=== PATIENT | female | born 2000 | race Caucasian/White ===

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

== ENCOUNTER 2020-12-24 12:20 | Emergency (ER) | payer MEDICAID, OTHER ==
--- NOTE | 2020-12-24 13:11 | ED Physician Documentation ---
History of Present Illness - Stated complaint Stated Complaint: BLOOD IN STOOL - Chief complaint Chief Complaint: Abd Pain - Additonal information Additional information: 20-year-old female presents to the emergency department with 2 concerns. Her first concern of priority is that she noticed bright red bloody stools this morning. She denies that she had painful bowel movements. She denies that it was blood-streaked stool. She is concerned because both her mom and sisters have a history of Crohn's/colitis and she is concerned that this may be the on set of this condition. She has no fevers, vomiting. Denies urinary symptoms. No pertinent past surgical history. She denies any history of bloody stools. Patient denies aspirin or NSAID use. She does drink occasionally and has been drinking more heavily than normal recently. preceding this a.m. Her second concern is worsening depression. She reports that 2 nights ago she cut her left arm extensively. She has suicidal thoughts but denies intent of self-harm at this time. After cutting herself 2 nights ago she did reach out to her therapist And stated that she felt a little better after cutting but she expresses that she feels generally fatigued disinterested in life and disassociated with her body. She has been using cannabis oil as well as occasionally smoking to help control her symptoms. She has never been medicated for her depression or anxiety. She does have an appointment with her talk therapist this upcoming Saturday but is interested in the possibility of starting oral medications. She does endorse a history of alcohol use but has been trying not to drink. She reports that when she cut herself 2 nights ago she had been drinking heavily. Pt does not have an established PCP Review of Systems Constitutional: denies: Fever, Chills Eyes: reports: Reviewed and negative Ears: reports: Reviewed and negative Nose: reports: Reviewed and negative Throat: reports: Reviewed and negative Cardiac: reports: Reviewed and negative Respiratory: reports: Reviewed and negative GI: reports: Abdominal Pain, Nausea, Bloody / black stool. denies: Vomiting, Constipation, Diarrhea : denies: Dysuria, Frequency, Hesitancy Skin: reports: Lesions (Multiple shallow cutting lesions in various stages of healing on the left forearm chest and left neck.). denies: Rash Musculoskeletal: reports: Reviewed and negative Neurologic: reports: Reviewed and negative Psychiatric: reports: Depressed, Anxiety. denies: Suicidal (Suicidal thoughts but no active plan.), Homicidal, Hallucinations, Insomnia Endocrine: reports: Reviewed and negative PD PAST MEDICAL HISTORY - Past Surgical History Past Surgical History: No - Present Medications Home Medications: Ambulatory Orders Medication Instructions Recorded Confirmed Pantoprazole [Protonix] 0 mg PO AC #30 12/24/20 - Allergies Allergies/Adverse Reactions: Allergies Allergy/AdvReac Type Severity Reaction Status Date / Time No Known Drug Allergies Allergy Verified 12/24/20 12:30 - Social History Does the pt smoke?: No Smoking Status: Never smoker Does the pt drink ETOH?: No Does the pt have substance abuse?: No PD ED PE EXPANDED - General General: Alert, No acute distress, Well developed/nourished - HEENT HEENT: Atraumatic, PERRL - Neck Neck: Supple w/out meningeal sx, Other (multiple shallow cutting lesion left neck). No: Adenopathy - Cardiac Cardiac: Regular Rate, Regular Rhythm, Radial strong equal, Pedal strong equal, Cap refill < 2 sec - Respiratory Respiratory: Clear to ausultation [place]. No: Distress, Labored - Abdomen Abdomen: Normal Bowel sounds, Tender to palpation (LUQ without guarding or rebound) - Rectal Rectal: Normal Tone, Solutions Executive Security present, Other (Digital rectal exam revealed a small amount of garrison hematochezia) - Derm Derm: Normal color, Warm and dry, Other (Multiple shallow cutting lesions left forearm neck and chest in various stages of healing. No surrounding erythema drainage or signs of infection.). No: Pale - Neuro Neuro: Alert and Oriented X 3, CNII-XII intact - GCS Eye Opening: Spontaneous Motor: Obeys Commands Verbal: Oriented Total: 15 - Psych Psych: Anxious. No: Suicidal, Homicidal Results - Vitals Vitals: Vital Signs - 24 hr 12/24/20 12/24/20 12/24/20 12:25 13:18 15:40 Temperature 36.5 C 37.0 C 36.8 C Heart Rate 63 48 L 55 L Respiratory 16 18 13 Rate Blood Pressure 123/82 H 114/80 114/74 O2 Saturation 100 99 100 12/24/20 12/24/20 17:48 19:30 Temperature 36.8 C 37.2 C Heart Rate 71 57 L Respiratory 12 16 Rate Blood Pressure 106/65 126/85 H O2 Saturation 100 100 Oxygen O2 Source Room air - Labs Labs: Laboratory Tests 12/24/20 12/24/20 12/24/20 13:00 13:00 13:13 WBC 8.9 RBC 4.35 Hgb 14.0 Hct 42.1 MCV 96.8 MCH 32.2 H MCHC 33.3 RDW 11.4 L Plt Count 252 MPV 9.6 Neut # (Auto) 6.6 Lymph # (Auto) 1.8 [place] # (Auto) 0.5 Eos # (Auto) 0.1 Baso # (Auto) 0.0 Absolute Nucleated RBC 0.00 Nucleated RBC % 0.0 Sodium Potassium Chloride Carbon Dioxide Anion Gap BUN Creatinine Estimated GFR (MDRD) Glucose Calcium Magnesium Total Bilirubin AST ALT Alkaline Phosphatase Total Protein Albumin Globulin Albumin/Globulin Ratio Lipase TSH Urine Color YELLOW Urine Clarity CLEAR Urine pH 7.0 Ur Specific [place] 1.010 Urine Protein NEGATIVE Urine Glucose (UA) NEGATIVE Urine Ketones NEGATIVE Urine Occult Blood NEGATIVE Urine Nitrite NEGATIVE Urine Bilirubin NEGATIVE Urine Urobilinogen 0.2 (NORMAL) Ur Leukocyte Esterase NEGATIVE Ur Microscopic Review NOT INDICATED Urine Culture Comments NOT INDICATED Urine HCG, Qual NEGATIVE Nasal Adenovirus (PCR) Nasal B. parapertussis DNA (PCR) Nasal Coronavir 229E PCR Nasal Coronavir HKU1 PCR Nasal Coronavir NL63 PCR Nasal Coronavir OC43 PCR Nasal Enterovir/Rhinovir PCR Nasal Influenza B PCR Nasal Influenza A PCR Nasal Parainfluen 1 PCR Nasal Parainfluen 2 PCR Nasal Parainfluen 3 PCR Nasal Parainfluen 4 PCR Nasal RSV (PCR) Nasal B.pertussis DNA PCR Nasal C.pneumoniae (PCR) Nael Human Metapneumo PCR Nasal M.pneumoniae (PCR) Nasal SARS-CoV-2 (PCR) Salicylates Urine Opiates Screen NEGATIVE Ur Oxycodone Screen NEGATIVE Urine Methadone Screen NEGATIVE Ur Propoxyphene Screen NEGATIVE Acetaminophen Ur Barbiturates Screen NEGATIVE Ur Tricyclics Screen NEGATIVE Ur Phencyclidine Scrn NEGATIVE Ur Amphetamine Screen NEGATIVE U Methamphetamines Scrn NEGATIVE U Benzodiazepines Scrn NEGATIVE Urine Cocaine Screen NEGATIVE U Cannabinoids Screen NEGATIVE Ethyl Alcohol 12/24/20 12/24/20 12/24/20 13:13 13:13 13:13 WBC RBC Hgb Hct MCV MCH MCHC RDW Plt Count MPV Neut # (Auto) Lymph # (Auto) [place] # (Auto) Eos # (Auto) Baso # (Auto) Absolute Nucleated RBC Nucleated RBC % Sodium 139 Potassium 3.7 Chloride 99 L Carbon Dioxide 27 Anion Gap 13.0 BUN 18 Creatinine 1.0 Estimated GFR (MDRD) 69 L Glucose 92 Calcium 9.8 Magnesium 2.1 Total Bilirubin 0.9 AST 20 ALT 16 Alkaline Phosphatase 45 Total Protein 8.2 Albumin 4.9 Globulin 3.3 Albumin/Globulin Ratio 1.5 Lipase 31 TSH 0.71 Urine Color Urine Clarity Urine pH Ur Specific [place] Urine Protein Urine Glucose (UA) Urine Ketones Urine Occult Blood Urine Nitrite Urine Bilirubin Urine Urobilinogen Ur Leukocyte Esterase Ur Microscopic Review Urine Culture Comments Urine HCG, Qual Nasal Adenovirus (PCR) Nasal B. parapertussis DNA (PCR) Nasal Coronavir 229E PCR Nasal Coronavir HKU1 PCR Nasal Coronavir NL63 PCR Nasal Coronavir OC43 PCR Nasal Enterovir/Rhinovir PCR Nasal Influenza B PCR Nasal Influenza A PCR Nasal Parainfluen 1 PCR Nasal Parainfluen 2 PCR Nasal Parainfluen 3 PCR Nasal Parainfluen 4 PCR Nasal RSV (PCR) Nasal B.pertussis DNA PCR Nasal C.pneumoniae (PCR) Nael Human Metapneumo PCR Nasal M.pneumoniae (PCR) Nasal SARS-CoV-2 (PCR) Salicylates < 6.0 Urine Opiates Screen Ur Oxycodone Screen Urine Methadone Screen Ur Propoxyphene Screen Acetaminophen < 10 L Ur Barbiturates Screen Ur Tricyclics Screen Ur Phencyclidine Scrn Ur Amphetamine Screen U Methamphetamines Scrn U Benzodiazepines Scrn Urine Cocaine Screen U Cannabinoids Screen Ethyl Alcohol < 5.0 12/24/20 18:30 WBC RBC Hgb Hct MCV MCH MCHC RDW Plt Count MPV Neut # (Auto) Lymph # (Auto) [place] # (Auto) Eos # (Auto) Baso # (Auto) Absolute Nucleated RBC Nucleated RBC % Sodium Potassium Chloride Carbon Dioxide Anion Gap BUN Creatinine Estimated GFR (MDRD) Glucose Calcium Magnesium Total Bilirubin AST ALT Alkaline Phosphatase Total Protein Albumin Globulin Albumin/Globulin Ratio Lipase TSH Urine Color Urine Clarity Urine pH Ur Specific [place] Urine Protein Urine Glucose (UA) Urine Ketones Urine Occult Blood Urine Nitrite Urine Bilirubin Urine Urobilinogen Ur Leukocyte Esterase Ur Microscopic Review Urine Culture Comments Urine HCG, Qual Nasal Adenovirus (PCR) NOT DETECTED Nasal B. parapertussis DNA (PCR) NOT DETECTED Nasal Coronavir 229E PCR NOT DETECTED Nasal Coronavir HKU1 PCR NOT DETECTED Nasal Coronavir NL63 PCR NOT DETECTED Nasal Coronavir OC43 PCR NOT DETECTED Nasal Enterovir/Rhinovir PCR NOT DETECTED Nasal Influenza B PCR NOT DETECTED Nasal Influenza A PCR NOT DETECTED Nasal Parainfluen 1 PCR NOT DETECTED Nasal Parainfluen 2 PCR NOT DETECTED Nasal Parainfluen 3 PCR NOT DETECTED Nasal Parainfluen 4 PCR NOT DETECTED Nasal RSV (PCR) NOT DETECTED Nasal B.pertussis DNA PCR NOT DETECTED Nasal C.pneumoniae (PCR) NOT DETECTED Nael Human Metapneumo PCR NOT DETECTED Nasal M.pneumoniae (PCR) NOT DETECTED Nasal SARS-CoV-2 (PCR) NOT DETECTED Salicylates Urine Opiates Screen Ur Oxycodone Screen Urine Methadone Screen Ur Propoxyphene Screen Acetaminophen Ur Barbiturates Screen Ur Tricyclics Screen Ur Phencyclidine Scrn Ur Amphetamine Screen U Methamphetamines Scrn U Benzodiazepines Scrn Urine Cocaine Screen U Cannabinoids Screen Ethyl Alcohol - Rads (name of study) CT abd Radiology: Final report received (Nondilated fluid-filled loops of the small bowel are seen throughout the abdomen which are nonspecific but may indicate a mild enteritis. No signs of bowel obstruction. Normal appendix.) PD MEDICAL DECISION MAKING - ED course Complexity details: reviewed results, re-evaluated patient, considered differential, d/w patient ED course: 20-year-old female presents emergency department for 2 concerns. The first is that she developed bright red bloody stools this a.m. She does have a family history of Crohn's or colitis and is concerned she may be developing that. Here in the emergency department her vital signs and labs are essentially. No leukocytosis and a very healthy hemoglobin. 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 I did do a digital rectal exam on this patient and there was a small amount of hematochezia on the gloved finger. I discussed the CT findings with the patient and discussed that moving forward she will need to be seen by a assistant secretary to undergo colonoscopy as that is the definitive testing for Crohn's colitis. I will recommend that she avoid any NSAID use and we will start her on twice daily Protonix. We did discuss that if she is having worsening rectal bleeding, feels faint or dizzy, has a resting heart rate greater than 115, has any fainting episode she is to return immediately to the emergency department. The second concern for this young lady is her depression and anxiety. She has been self cutting recently but is fairly adamant with this provider that she does not want to harm herself or others. She has found some symptom relief by using talk therapy and has stopped smoking cannabis and drinking. However I suspect that she will do well with oral medication. Therefore I requested telepsych consultation 0: I have spoken with telepsych psychiatrist Dr. Nelson who has assessed the patient. Unfortunately she gave a much more worrisome history for suicidal behaviors. She expressed to him that she has attempted suicide in the past by taking too many sleeping pills. She also has thoughts of jumping off a bridge or in front of traffic. She expressed to the psychiatrist that these thoughts are becoming pervasive and overwhelming. At this time he feels that the patient should be voluntarily placed in psychiatric facility for mood stabilization. He expresses to this provider that if she does not wish to go in voluntarily he would request DCR evaluation for involuntary status. I spent some time at the bedside with the patient. We discussed that what she reported to me and the psychiatrist were quite different and she agreed that they were. She does feel that she minimized her initial thoughts to me. We discussed that the big concern is that she would be at risk to harm herself leaving the hospital. At this time she agrees to be placed in a psychiatric facility voluntarily. I discussed with her that if her decision would change I would request DCR involvement though there is no guarantee that DCR would make her an involuntary placement. 2100: Patient has been accepted at [facility] for further psychiatric evaluation and treatment. Appropriate COBRA paperwork as well as authorization of secure ambulance transportation to and from [facility] services form completed Departure - Departure Disposition: 65 Psych Hosp/Unit DC/Xfer Clinical Impression: Bloody stools Depression Qualifiers: Depression Type: major depressive disorder Major depression recurrence: unspecified whether recurrent Active/Remission status: currently active Major depression episode severity: severe Psychotic features: without psychotic features Qualified Code(s): F32.2 - Major depressive disorder, single episode, severe without psychotic features Condition: Stable Record reviewed to determine appropriate education?: Yes Prescriptions: Pantoprazole [Protonix] 0 mg PO AC #30 Comments: I wish you luck in your journey. Please be patient withotuself. the road to [facility] takes time, but you can get there. As we discussed the CT scan of your belly did suggest an enteritis or mild inflammation of the small bowel. Is not clear at this time if this is simply an early viral illness or if this is the first time presentation for possible Crohn's or colitis. Once out of hospitalization for depression it is important that you schedule follow-up appointment with a primary care provider. You need referral to a assistant secretary in order to undergo endoscopy or colonoscopy. I would like you to start taking Protonix once daily. Please avoid any NSAID medication use such as ibuprofen. Also avoid all alcohol use. If at any point you develop a racing heart at rest, have suddenly severe belly p ain, have severe or worsening rectal bleeding or feel that your symptoms are not improving please return immediately to the emergency department
[2020-12-24 13:13] LABS: MUDS CUTOFF CONCENTRATIONS CUTOFF CONC BELOW:
[2020-12-24 13:16] LABS: BILIRUBIN,URINE NEGATIVE (NEGATIVE); GLUCOSE, URINE (UA) NEGATIVE (NEGATIVE); KETONES,URINE (UA) NEGATIVE (NEGATIVE); LEUKOCYTE ESTERASE, URINE NEGATIVE (NEGATIVE); NITRITE,URINE NEGATIVE (NEGATIVE); OCCULT BLOOD,URINE NEGATIVE (NEGATIVE); PROTEIN,URINE NEGATIVE (NEGATIVE); UROBILINOGEN,URINE 0.2 (NORMAL) E.U./dL (NORMAL)
[2020-12-24 13:18] LABS: CLARITY,URINE CLEAR (CLEAR); HCG UR QUAL NEGATIVE
[2020-12-24 13:22] LABS: BASOPHILS % (AUTO) 0.3 %; EOSINOPHILS # (AUTO) 0.1 10^3/uL (0.0-0.7); EOSINOPHILS % (AUTO) 0.9 %; LYMPHOCYTES # (AUTO) 1.8 10^3/uL (1.5-3.5); LYMPHOCYTES % (AUTO) 19.8 %; MEAN CORPUSCULAR HEMOGLOBIN 32.2 pg (27.0-31.0); MEAN CORPUSCULAR HGB CONC 33.3 g/dL (32.0-36.0); MEAN CORPUSCULAR VOLUME 96.8 fL (81.0-99.0); MEAN PLATELET VOLUME 9.6 fL (7.9-10.8); MONOCYTES # (AUTO) 0.5 10^3/uL (0.0-1.0); MONOCYTES % (AUTO) 5.1 %; NEUTROPHILS # (AUTO) 6.6 10^3/uL (1.5-6.6); NEUTROPHILS % (AUTO) 73.8 %; PLT - PLATELET COUNT 252 10^3/uL (130-450); RED BLOOD COUNT 4.35 10^6/uL (4.20-5.40); RED CELL DISTRIBUTION WIDTH 11.4 % (12.0-15.0); WHITE BLOOD COUNT 8.9 x10^3/uL (4.8-10.8)
[2020-12-24 13:32] LABS: AMPHETAMINE SCREEN,URINE NEGATIVE (NEGATIVE); BENZODIAZEPINES SCREEN, URINE NEGATIVE (NEGATIVE); COCAINE SCREEN URINE NEGATIVE (NEGATIVE); METHADONE SCREEN, URINE NEGATIVE (NEGATIVE); METHAMPHETAMINES SCREEN, URINE NEGATIVE (NEGATIVE); OPIATE SCREEN, URINE NEGATIVE (NEGATIVE); OXYCODONE SCREEN, URINE NEGATIVE (NEGATIVE); PROPOXYPHENE SCREEN, URINE NEGATIVE (NEGATIVE); TRICYCLIC ANTIDEPRESSANT,URINE NEGATIVE (NEGATIVE)
[2020-12-24 13:35] LABS: ACETAMINOPHEN < 10 ug/mL (10-30); ALBUMIN 4.9 g/dL (3.2-5.5); ALBUMIN/GLOBULIN RATIO 1.5 (1.0-2.2); ALKALINE PHOSPHATASE 45 IU/L (42-121); ALT ALANINE AMINOTRANSFERASE 16 IU/L (10-60); AST ASPARTATE AMINOTRANSFERASE 20 IU/L (10-42); BILIRUBIN,TOTAL 0.9 mg/dL (0.2-1.0); BUN - BLOOD UREA NITROGEN 18 mg/dL (6-20); CALCIUM 9.8 mg/dL (8.5-10.3); CARBON DIOXIDE - CO2 27 mmol/L (21-32); CHLORIDE 99 mmol/L (101-111); GLUCOSE 92 mg/dL (70-100); LIPASE 31 U/L (22-51); SALICYLATE < 6.0 mg/dL; TOTAL PROTEIN 8.2 g/dL (6.7-8.2)
[2020-12-24] MEDS ORDERED: IOVERSOL 320 100 ML VIAL IVP ONE ×2 (13:49→14:36)
--- NOTE | 2020-12-24 14:24 | CT Report ---
PROCEDURE: Abdomen/Pelvis W INDICATIONS: hematochezia CONTRAST: IV CONTRAST: Optiray 320 ml: 100 PO CONTRAST: *NO PO CONTRAST TECHNIQUE: After the administration of intravenous contrast, 5 mm thick sections acquired from the diaphragms to the symphysis. 5 mm thick coronal and sagittal reformats were acquired. For radiation dose reducti on, the following was used: automated exposure control, adjustment of mA and/or kV according to carlos ent size. COMPARISON: None. FINDINGS: Image quality: Excellent. ABDOMEN: Lung bases: There is mild dependent atelectasis in the lung bases. Heart size is normal. Solid organs: Liver and spleen are normal in size and enhancement. A 6 mm hypoattenuating lesion in the right hepatic lobe is too small to characterize, but most likely represents a cyst. Gallbladder a ppears normal. Biliary system is non dilated. Pancreas enhances normally. No adrenal nodules. Kid neys demonstrate normal size and enhancement, without hydronephrosis. Peritoneum and bowel: Normal appendix. No signs of bowel obstruction. A small amount of stool is see n throughout the colon. Nondilated fluid-filled loops of small bowel are seen throughout the abdomen, which are nonspecific, but could indicate a mild enteritis. There is no significant ascites or pneum operitoneum. Nodes and vessels: No retroperitoneal or mesenteric adenopathy by size criteria. Aorta and inferior vena cava are normal in size. Miscellaneous: No ventral hernias. PELVIS: Genitourinary: Bladder wall thickness is normal. The uterus is normal in size. An intrauterine bruna ce is noted. No suspicious adnexal mass is identified. Miscellaneous: No inguinal hernias or adenopathy. Bones: No suspicious bony lesions. No vertebral body compression fractures. IMPRESSION: Nondilated fluid-filled loops of small bowel are seen throughout the abdomen, which are nonspecific b ut may indicate a mild enteritis. No signs of bowel obstruction. Normal appendix. Reviewed by: Justin Trujillo MD on 12/24/2020 2:23 PM [facility] Approved by: Justin Trujillo MD on 12/24/2020 2:23 PM PST Station ID: [id number]
[2020-12-24] MEDS ORDERED: PANTOPRAZOLE 40 MG VIAL IVP STA (14:33)
[2020-12-24 19:32] LABS: C. PNEUMONIAE- RESP PCR PANEL NOT DETECTED
[2020-12-25 00:04] VITALS: BP 120/72
--- NOTE | 2020-12-25 21:36 | ED Physician Documentation ---
ED Addendum - Addendum Addendum: 12/25/20 21:27 I received sign out on this patient from GEMINI Curry pending DCR evaluation. While awaiting contact with DCR, patient is politely requesting d/c home. I evaluated her and she is able to provide a strong contract for safety with me. she says her self-inflicted left FA injury was while she was intoxicated and she denies suicidal intent. she describes a strongly supportive family. she says she will return or call 911 immediately if she feels unsafe at any time. I was comf ortable with discharging her, and subsequently [facility] called back and informed ED RN that they deemed this case insufficient cause for dispatching DCR.
== END 2020-12-25 | disposition home or self-care (01) ==
LOC: ED 12:20
DX: F33.2 Major depressive disorder, recurrent severe without psychotic features (principal); R45.851 Suicidal ideations; F41.9 Anxiety disorder, unspecified; K92.1 Melena; R10.12 Left upper quadrant pain; Z83.79 Family history of other diseases of the digestive system; Z20.822 Contact with and (suspected) exposure to COVID-19; S51.812A Laceration without foreign body of left forearm, initial encounter; S21.119A Laceration without foreign body of unspecified front wall of thorax without penetration into thoracic cavity, initial encounter; S11.91XA Laceration without foreign body of unspecified part of neck, initial encounter; X78.9XXA Intentional self-harm by unspecified sharp object, initial encounter
CPT/HCPCS: 0202U; 36415; 74177; 80053; 80306; 80307; 80320; 80329; 81003; 81025; 83690; 83735; 84443; 85025; 93005; 99284; Q9967; 81001; 87086

== ENCOUNTER 2022-09-04 10:52 | Outpatient (CLI) | payer MEDICAID ==
[2022-09-04 14:23] LABS: BASOPHILS # (AUTO) 0.1 10^3/uL (0.0-0.1); EOSINOPHILS # (AUTO) 0.1 10^3/uL (0.0-0.7); EOSINOPHILS % (AUTO) 1.8 %; HCT - HEMATOCRIT 42.9 % (37.0-47.0); HGB - HEMOGLOBIN 13.8 g/dL (12.0-16.0); LYMPHOCYTES # (AUTO) 1.5 10^3/uL (1.5-3.5); LYMPHOCYTES % (AUTO) 29.9 %; MEAN CORPUSCULAR HEMOGLOBIN 30.7 pg (27.0-31.0); MEAN CORPUSCULAR HGB CONC 32.2 g/dL (32.0-36.0); MEAN CORPUSCULAR VOLUME 95.3 fL (81.0-99.0); MEAN PLATELET VOLUME 10.1 fL (7.9-10.8); MONOCYTES # (AUTO) 0.4 10^3/uL (0.0-1.0); MONOCYTES % (AUTO) 8.4 %; NEUTROPHILS # (AUTO) 2.9 10^3/uL (1.5-6.6); NEUTROPHILS % (AUTO) 58.7 %; PLT - PLATELET COUNT 257 10^3/uL (130-450); RED CELL DISTRIBUTION WIDTH 11.6 % (12.0-15.0); WHITE BLOOD COUNT 4.9 x10^3/uL (4.8-10.8)
[2022-09-04 14:55] LABS: ALBUMIN 4.8 g/dL (3.2-5.5); ALBUMIN/GLOBULIN RATIO 1.5 (1.0-2.2); BILIRUBIN,TOTAL 0.6 mg/dL (0.2-1.0); CALCIUM 9.9 mg/dL (8.5-10.3); CREATININE 0.8 mg/dL (0.4-1.0); POTASSIUM 4.2 mmol/L (3.5-5.0); THYROID STIMULATING HORMONE 1.21 uIU/mL (0.34-5.60); TOTAL PROTEIN 8.1 g/dL (6.7-8.2)
[2022-09-04 14:56] LABS: FREE T3 3.38 pg/mL (2.5-3.9); FREE T4 (FREE THYROXINE) 0.96 ng/dL (0.58-1.64)
[2022-09-04 14:58] LABS: FERRITIN 61.8 ng/mL (11.0-306.8)
== END 2022-09-04 10:53 | disposition home or self-care (01) ==
LOC: LAB.S 10:52
DX: F32.A Depression, unspecified (principal); R53.83 Other fatigue; K59.00 Constipation, unspecified
CPT/HCPCS: 36415; 80053; 82728; 83540; 84439; 84443; 84466; 84481; 85025